=== PATIENT | male | born 1970 | race Hispanic/Latino ===

== ENCOUNTER 2019-06-21 22:06 | Emergency (ER) | payer BC ==
[~2019-06-21] VITALS: Ht 167.6 cm; Wt 81.6 kg
[2019-06-21] MEDS ORDERED: ONDANSETRON HCL INJ 2MG/ML 2ML 2 MG/ML VIAL IV STA (22:21)
[2019-06-21] MEDS ORDERED: PANTOPRAZOLE 40 MG 10ML VIAL IV STA (22:21)
[2019-06-21] MEDS ORDERED: HYDRALAZINE HCL 20 MG/ML VIAL IV STA (22:24)
[2019-06-21] MEDS ORDERED: DICYCLOMINE HCL 20 MG/2 ML VIAL IM ONE (22:30)
[2019-06-21 22:45] LABS: BASOPHILS % 0.4 % (0.0-1.0); EOSINOPHILS # (AUTO) 0.3 (0.0-0.4); EOSINOPHILS % 3.3 % (0.0-6.0); HEMATOCRIT 41.1 % (38.2-49.6); HEMOGLOBIN 14.4 g/dL (14.0-18.0); LYMPHOCYTES # (AUTO) 3.2 (1.0-3.2); LYMPHOCYTES % 41.4 % (18.0-39.1); MEAN CORPUSCULAR HEMOGLOBIN 32.5 pg (28-32); MEAN CORPUSCULAR VOLUME 92.8 fL (81-99); MONOCYTES # (AUTO) 0.7 (0.2-0.8); NEUTROPHILS # (AUTO) 3.5 (2.1-6.9); NEUTROPHILS % 45.2 % (38.7-80.0); PLATELET COUNT 251 x10e3/uL (140-360); RED BLOOD COUNT 4.43 x10e6/uL (4.3-5.7); RED CELL DISTRIBUTION WIDTH 11.1 % (11.7-14.4)
[2019-06-21 22:54] LABS: COLOR,URINE ORANGE (YELLOW)
[2019-06-21 22:55] LABS: BILIRUBIN,URINE 2+ (NEGATIVE); CLARITY,URINE SL CLOUDY (CLEAR); KETONES,URINE TRACE (NEGATIVE); LEUKOCYTE ESTERASE ,URINE NEGATIVE (NEGATIVE); NITRITE,URINE NEGATIVE (NEGATIVE); PROTEIN,URINE DIPSTICK 2+ (NEGATIVE)
[2019-06-21 23:06] LABS: ALANINE AMINOTRANSFERASE 23 IU/L (0-55); ALBUMIN 3.7 g/dL (3.5-5.0); ALKALINE PHOSPHATASE 110 IU/L (40-150); ANION GAP 14.4 mmol/L (8-16); BLOOD UREA NITROGEN 13 mg/dL (7-26); BUN/CREATININE RATIO 14 (6-25); CALCIUM 9.4 mg/dL (8.4-10.2); CARBON DIOXIDE 25 mmol/L (22-29); CHLORIDE 103 mmol/L (98-107); CREATINE KINASE 62 IU/L (30-200); EST GLOMERULAR FILTRATION RATE > 60 ML/MIN (60-); GLUCOSE 216 mg/dL (74-118); POTASSIUM 3.4 mmol/L (3.5-5.1); SODIUM 139 mmol/L (136-145)
[2019-06-21 23:26] LABS: AMYLASE 50 U/L (25-125)
[2019-06-21 23:27] LABS: BACTERIA,URINE FEW /HPF; EPITHELIAL CELLS,URINE FEW /LPF; MUCUS,URINE MANY (RARE); TRANSITIONAL EPI CELLS,URINE FEW
[2019-06-21 23:51] LABS: LIPASE 18 U/L (8-78)
--- NOTE | 2019-06-22 00:24 | Diagnostic Imaging Report ---
EXAM: Right Upper Quadrant Ultrasound INDICATION: RUQ PAIN COMPARISON: None. TECHNIQUE: Transverse and longitudinal images of the right upper abdomen were obtained. FINDINGS: Liver: Size: 13.7 cm in the right midclavicular line, normal Appearance: Increased echogenicity, smooth contour Mass: No focal masses Gallbladder: Stones/Sludge: None. 2.4 mm nonmobile echogenic focus in the gallbladder wall suggestive of a tiny cholesterol polyp. Wall: 0.3 cm, upper limits of normal. Appearance: No wall thickening, pericholecystic fluid or hydrops. Sonographic Salvador's Sign: Negative Bile Ducts: Intrahepatic Ducts: No dilatation Extrahepatic Ducts: Common bile duct measures 0.2 cm, no dilatation Pancreas: Not visualized shadowing from overlying bowel gas. Kidneys: Length: Right 12.7 cm Echogenicity: Normal Collecting System: No hydronephrosis Stone: None Cyst/Mass: None Vessels: Aorta: Not visualized shadowing from overlying bowel gas. Inferior Vena Cava: Visualized portions are normal Main Portal Vein: 1.2 cm, normal size with hepatopetal flow. Free Fluid: No ascites or pleural effusion IMPRESSION: 1. Tiny gallbladder polyp. No cholelithiasis or cholecystitis. 2. Pancreas not visualized shadowing from overlying bowel gas. 3. Hepatic steatosis. Signed by: Dr. Shirley Hudson M.D. on 06/22/2019 12:22 AM
[2019-06-22 00:38] VITALS: BP 148/102
== END 2019-06-22 00:51 | disposition home or self-care (01) ==
LOC: ER 22:06
DX: R10.11 Right upper quadrant pain (principal); R11.0 Nausea; K80.50 Calculus of bile duct without cholangitis or cholecystitis without obstruction; I10 Essential (primary) hypertension; E11.9 Type 2 diabetes mellitus without complications; E78.5 Hyperlipidemia, unspecified
CPT/HCPCS: 36415; 76705; 80053; 81001; 82150; 82550; 82553; 83690; 84484; 85025; 93005; 99284; C9113; J0360; J0500; J2405

== ENCOUNTER 2019-06-23 16:45 | Emergency (ER) | payer BC ==
[~2019-06-23] VITALS: Ht 167.6 cm; Wt 81.6 kg
--- OUTSIDE RECORDS SUMMARY | 2019-06-23 16:47 | XMS REPORT ---
[facility] Address Unknown Phone Unavailable Care Team Providers Care Hair Tinter Name Role Phone Randy GUTIERREZ Unavailable Unavailable Problems This patient has no known problems. Allergies, Adverse Reactions, Alerts This patient has no known allergies or adverse reactions. Medications This patient has no known medications. Encounters Start Date/Time End Date/Time Encounter Type Admission Type Attending Clinicians Care Facility Care Department Encounter ID 2019-06-21 14:10:00 2019-06-21 14:10:00 Emergency [facility] [id number] Results Test Description Test Time Test Comments Text Results Atomic Results Result Comments US GALLBLADDER 2019-06-22 00:12:00 [place] [id number] Patient Name: JULITO CEDILLO MR #: [id number] : 1970 Age/Sex: 48/M Req #: [id number] Adm Physician: Ordered by: CRAIG GUTIERREZ MD Report #: [id number] Location: ER Room/Bed: Procedure: [id number] US/US GALLBLADDER Exam Date: 06/21/19 Exam Time: 2319 REPORT STATUS: Signed EXAM: Right Upper Quadrant Ultrasound INDICATION: RUQ PAIN COMPARISON: None. TECHNIQUE: Transverse and longitudinal images of the right upper abdomen were obtained. FINDINGS: Liver: Size: 13.7 cm in the right midclavicular line, normal Appearance: Increased echogenicity, smooth contour Mass: No focal masses Gallbladder: Stones/Sludge: None. 2.4 mm nonmobile echogenic focus in the gallbladder wall suggestive of a tiny cholesterol polyp. Wall: 0.3 cm, upper limits of normal. Appearance: No wall thickening, pericholecystic fluid or hydrops. Sonographic Salvador's Sign: Negative Bile Ducts: Intrahepatic Ducts: No dilatation Extrahepatic Ducts: Common bile duct measures 0.2 cm, no dilatation Pancreas: Not visualized shadowing from overlying bowel gas. Kidneys: Length: Right 12.7 cm Echogenicity: Normal Collecting System: No hydronephrosis Stone: None Cyst/Mass: None Vessels: Aorta: Not visualized shadowing from overlying bowel gas. Inferior Vena Cava: Visualized portions are normal Main Portal Vein: 1.2 cm, normal size with hepatopetal flow. Free Fluid: No ascites or pleural effusion IMPRESSION: 1. Tiny gallbladder polyp. No cholelithiasis or cholecystitis. 2. Pancreas not visualized shadowing from overlying bowel gas. 3. Hepatic steatosis. Signed by: Dr. Shirley Singh M.D. on 06/22/2019 12:22 AM Dictated By: FADI SINGH MD, MD Transcribed By: ALTAGRACIA on 06/22/1921 COPY TO: CRAIG GUTIERREZ MD
[2019-06-23] MEDS ORDERED: SODIUM CHLORIDE 0.9% 1000ML 1,000 ML IV STA (17:26)
[2019-06-23] MEDS ORDERED: ONDANSETRON HCL INJ 2MG/ML 2ML 2 MG/ML VIAL IV STA (17:26)
[2019-06-23] MEDS ORDERED: MORPHINE SULFATE INJ 4 MG/ML INJ 1ML IV STA (17:26)
[2019-06-23] MEDS ORDERED: PIPER-TAZ 3.375 GM 50 ML IV STA (17:26)
--- NOTE | 2019-06-23 18:38 | Diagnostic Imaging Report ---
EXAM: CT Abdomen and Pelvis WITH contrast INDICATION: Abdominal pain. COMPARISON: June 21, 2019. TECHNIQUE: Abdomen and pelvis were scanned utilizing a multidetector helical scanner from the lung base to the pubic symphysis after administration of IV contrast. Coronal and sagittal reformations were obtained. Routine protocol was performed. Scan was performed when during portal venous phase. IV CONTRAST: 100 mL of Isovue 370 ORAL CONTRAST: Water COMPLICATIONS: None RADIATION DOSE: Total DLP: 296 mGy*cm Estimated effective dose: (DLP x 0.015 x size factor) mSv CTDIvol has been reviewed. It is below the limits set by the Radiation Protocol Committee (RPC). Dose modulation, iterative reconstruction, and/or weight based adjustment of the mA/kV was utilized to reduce the radiation dose to as low as reasonably achievable. FINDINGS: LINES and TUBES: None. LOWER THORAX: Calcified granuloma in the left lung base HEPATOBILIARY: No focal hepatic lesions. No biliary ductal dilation. GALLBLADDER: No radio-opaque stones or sludge. No wall thickening. SPLEEN: No splenomegaly. PANCREAS: No focal masses or ductal dilatation. ADRENALS: No adrenal nodules KIDNEYS/URETERS: Kidneys enhance symmetrically. No hydronephrosis. No cystic or solid mass lesions. No stones. GI TRACT: No abnormal distention, wall thickening, or evidence of bowel obstruction. Appendix is not clearly seen however, no inflammatory changes are seen in the right lower quadrant of the abdomen. Scattered diverticulosis without evidence of diverticulitis. PELVIC ORGANS/BLADDER: Unremarkable. LYMPH NODES: No lymphadenopathy. VESSELS: Unremarkable. PERITONEUM / RETROPERITONEUM: No free air or fluid. BONES: Scattered degenerative change. SOFT TISSUES: Unremarkable. IMPRESSION: 1. Scattered diverticulosis without evidence of diverticulitis. 2. Appendix is not clearly seen however, no inflammatory changes are seen in the right lower quadrant of the abdomen. Signed by: Dr. Nick Pinto M.D. on 06/23/2019 6:35 PM
[2019-06-23 19:00] LABS: RED BLOOD COUNT 5.26 x10e6/uL (4.3-5.7)
[2019-06-23 19:01] LABS: HEMOGLOBIN 17.2 g/dL (14.0-18.0)
[2019-06-23 19:02] LABS: EOSINOPHILS % 0.2 % (0.0-6.0); HEMATOCRIT 48.8 % (38.2-49.6); LYMPHOCYTES % 2.5 % (18.0-39.1); MEAN CORPUSCULAR HEMOGLOBIN 32.7 pg (28-32); MEAN CORPUSCULAR HGB CONC 35.2 g/dL (31-35); MEAN CORPUSCULAR VOLUME 92.8 fL (81-99); MONOCYTES % 0.6 % (4.4-11.3); NEUTROPHILS % 4.5 % (38.7-80.0); PLATELET COUNT 202 x10e3/uL (140-360); RED CELL DISTRIBUTION WIDTH 11.2 % (11.7-14.4)
[2019-06-23 19:21] LABS: ALANINE AMINOTRANSFERASE 20 IU/L (0-55); ALBUMIN 3.9 g/dL (3.5-5.0); ALBUMIN/GLOBULIN RATIO 1.1 (0.8-2.0); ALKALINE PHOSPHATASE 80 IU/L (40-150); ANION GAP 16.6 mmol/L (8-16); BLOOD UREA NITROGEN 16 mg/dL (7-26); BUN/CREATININE RATIO 17 (6-25); CALCIUM 9.4 mg/dL (8.4-10.2); CARBON DIOXIDE 25 mmol/L (22-29); CHLORIDE 102 mmol/L (98-107); CREATININE, SERUM 0.94 mg/dL (0.72-1.25); EST GLOMERULAR FILTRATION RATE > 60 ML/MIN (60-); GLUCOSE 117 mg/dL (74-118); POTASSIUM 3.6 mmol/L (3.5-5.1); SODIUM 140 mmol/L (136-145)
[2019-06-23 19:25] LABS: AMYLASE 62 U/L (25-125); LIPASE 12 U/L (8-78)
[2019-06-23] MEDS ORDERED: SODIUM CHLORIDE 0.9% 50ML 50 ML ONE (22:07)
[2019-06-23] MEDS ORDERED: IOPAMIDOL 370 MG/ML 200 ML INFUS..BTL INJ ONE (22:07)
[2019-06-24 07:11] VITALS: BP 142/97
== END 2019-06-23 19:00 | disposition home or self-care (01) ==
LOC: ER 16:45
DX: R10.11 Right upper quadrant pain (principal); R10.31 Right lower quadrant pain; I10 Essential (primary) hypertension; E11.9 Type 2 diabetes mellitus without complications; E78.5 Hyperlipidemia, unspecified
CPT/HCPCS: 36415; 74177; 80053; 82150; 83690; 85025; 87040; Q9967; 99284

== ENCOUNTER 2019-06-26 20:11 | Emergency (ER) | payer BC ==
[~2019-06-26] VITALS: Ht 167.6 cm; Wt 81.6 kg
[2019-06-26] MEDS ORDERED: SODIUM CHLORIDE 0.9% 1000ML 1,000 ML IV STA (21:00)
[2019-06-26 21:49] LABS: BASOPHILS % 0.4 % (0.0-1.0); EOSINOPHILS # (AUTO) 0.2 (0.0-0.4); EOSINOPHILS % 2.4 % (0.0-6.0); HEMATOCRIT 41.7 % (38.2-49.6); HEMOGLOBIN 14.1 g/dL (14.0-18.0); LYMPHOCYTES # (AUTO) 3.7 (1.0-3.2); LYMPHOCYTES % 38.6 % (18.0-39.1); MEAN CORPUSCULAR HEMOGLOBIN 32.4 pg (28-32); MEAN CORPUSCULAR HGB CONC 33.8 g/dL (31-35); MEAN CORPUSCULAR VOLUME 95.9 fL (81-99); MONOCYTES # (AUTO) 0.6 (0.2-0.8); MONOCYTES % 6.5 % (4.4-11.3); NEUTROPHILS # (AUTO) 4.9 (2.1-6.9); NEUTROPHILS % 51.6 % (38.7-80.0); PLATELET COUNT 263 x10e3/uL (140-360); RED BLOOD COUNT 4.35 x10e6/uL (4.3-5.7); RED CELL DISTRIBUTION WIDTH 11.2 % (11.7-14.4)
[2019-06-26 22:02] LABS: BILIRUBIN,URINE NEGATIVE (NEGATIVE); CLARITY,URINE SL CLOUDY (CLEAR); COLOR,URINE YELLOW (YELLOW); KETONES,URINE NEGATIVE (NEGATIVE); LEUKOCYTE ESTERASE ,URINE NEGATIVE (NEGATIVE); NITRITE,URINE NEGATIVE (NEGATIVE); PROTEIN,URINE DIPSTICK 2+ (NEGATIVE); URINE UROBILINOGEN 0.2 mg/dL (0.2 - 1)
[2019-06-26 22:05] LABS: ALANINE AMINOTRANSFERASE 25 IU/L (0-55); ALBUMIN 3.8 g/dL (3.5-5.0); ALBUMIN/GLOBULIN RATIO 1.1 (0.8-2.0); ALKALINE PHOSPHATASE 79 IU/L (40-150); ANION GAP 13.2 mmol/L (8-16); BLOOD UREA NITROGEN 16 mg/dL (7-26); BUN/CREATININE RATIO 16 (6-25); CALCIUM 9.3 mg/dL (8.4-10.2); CARBON DIOXIDE 25 mmol/L (22-29); CHLORIDE 104 mmol/L (98-107); CREATININE, SERUM 0.98 mg/dL (0.72-1.25); EST GLOMERULAR FILTRATION RATE > 60 ML/MIN (60-); GLUCOSE 139 mg/dL (74-118); LIPASE 21 U/L (8-78); POTASSIUM 4.2 mmol/L (3.5-5.1); SODIUM 138 mmol/L (136-145)
[2019-06-26 22:14] LABS: EPITHELIAL CELLS,URINE FEW /LPF
--- NOTE | 2019-06-26 23:08 | Diagnostic Imaging Report ---
EXAM: Right Upper Quadrant Ultrasound with Doppler INDICATION: ^RUQ pain COMPARISON: Abdominal CT to 12/04/2019, abdominal ultrasound 06/21/2019 TECHNIQUE: Transverse and longitudinal images of the right upper abdomen were obtained. Grayscale, color Doppler and spectral waveform analysis of the hepatic vasculature and splenic vein were performed. FINDINGS: Liver: Size: 15.9 cm in the right midclavicular line, normal Appearance: Normal echogenicity, smooth contour Mass: No focal masses Gallbladder: Stones/Sludge: None Wall: 0.2 cm. A 0.5 cm echogenic nonshadowing nonmobile focus along the intraluminal surface of the gallbladder wall is likely a small polyp, no follow-up required. Appearance: No pericholecystic fluid or hydrops. Sonographic Salvador's Sign: Negative Bile Ducts: Intrahepatic Ducts: No dilatation Extrahepatic Ducts: Common bile duct measures 0.2 cm, no dilatation Pancreas: Visualized portions of the pancreatic head, neck and proximal body are normal. Right Kidney: Size: 11.4 cm Echogenicity: Normal Parenchymal thickness: Normal Collecting system: No hydronephrosis Stones: None Cyst/Mass: None Vessels: Main Portal Vein: Diameter: 0.7 cm, normal. Normal flow direction. Aorta: Not well seen, obscured by bowel contents. Inferior Vena Cava: Visualized portions are normal Free Fluid: No ascites or pleural effusion IMPRESSION: No acute sonographic abnormalities in the right upper quadrant.. Signed by: Andrea Wood DO on 06/26/2019 11:06 PM
== END 2019-06-27 | disposition home or self-care (01) ==
LOC: ER 20:11
DX: R10.11 Right upper quadrant pain (principal); K80.70 Calculus of gallbladder and bile duct without cholecystitis without obstruction
CPT/HCPCS: 36415; 76705; 80053; 81001; 83690; 85025; 99284